=== PATIENT | female | born 1995 ===

== ENCOUNTER 2024-01-17 13:37 | Emergency (ER) | payer OTHER ==
[~2024-01-17] VITALS: Ht 188 cm; Wt 136.0 kg
--- NOTE | 2024-01-17 13:59 | ED.PDOC ---
Back pain HPI HPI Comments HPI: Poor Historian. 28-year-old female brought in by EMS from home presents with a chief complaint of acute on chronic sciatica pain on the right leg with urinary incontinence last night. Patient mentions that she has lumbar herniated discs. most recent MRI was earlier this year. the back pain is accompanied by right lateral thigh/sciatica pain on the lateral aspect of her right leg that radiates all the way down to her foot. Patient mentions that she had one episode of incontinence last night to urine. Denies any incontinence since then. Patient mentions that heat and ice make the pain better. Patient has been to a pain management clinic and is on Hydrocodone and will see Neurology in March. No other symptoms or modifying factors present at this time. Patient follows with pain management and is currently on [place] and ibuprofen. Patient denies PMHx: Sciatica, Herniated Discs, HLD PSHx: None Allergies: None BP: 133/95 Temp: 98.7F RR: 18 SpO2: 98% HR: 97 REVIEW OF SYSTEMS: CONSTITUTIONAL: Denies acute: fever, diaphoresis, chills, generalized weakness. HEAD: Denies acute: headache, photophobia Eyes: Denies acute: Double vision, vision loss, eye pain, eye discharge. EARS: Denies acute: tinnitus, hearing loss, ear discharge, ear pain, THROAT: Denies acute: sore throat, swelling, difficulty swallowing , pain with swallowing, change in voice. NECK: Denies acute: neck pain, neck swelling, stiff neck. HEART: Denies acute : chest pain, palpitations, LUNGS: Denies acute: SOB, wheezing, cough, hemoptysis ABDOMEN: Denies acute: abdominal pain, Nausea, Vomiting, diarrhea, melena , hematemesis, hematochezia SKIN: Denies acute: rash, redness, lesions, itchiness. EXTREMITIES: Denies acute: calf pain, weakness, denies pain in extremity. Neuro: Denies acute: focal neurological deficit, motor or sensory focal neurological deficit, tremors, seizure like activity, confusion, dizziness, change in mental status, : Denies acute: dysuria, hematuria, flank pain, increase in urinary frequency. PSYCH: Denies acute: hallucination, suicidal ideation, homicidal ideation. FEMALE: Denies acute: abnormal vaginal bleeding, foul odor, unusual discharge. PHYSICAL EXAM: General: no acute distress, awake and alert. Head: normocephalic, atraumatic. Neck: supple, trachea is midline, no swelling. Throat: Normal phonation. Eyes:, no erythema, no purulent discharge, no proptosis, no icterus. Heart: regular rate, regular rhythm, no significant murmur appreciated. Lungs: no apparent respiratory distress, Able to speak in full sentences. No wheezing, no rhonchi, no crackles. No stridors Clear to auscultation bilaterally. Abdomen: non tender to palpation, non distended, soft, no guarding, no rebound, + bowel sounds. Neuro: Awake, Alert, oriented to name, self, situation, follows commands GCS=15. Speech is normal. Skin: no petechia, no purpura, no cyanosis, non-pale, not jaundice. Obese. Lower extremities: --no - Pitting edema no deformity, no focal swelling, no calf TTP. Makes eye contact. moves all four extremities. Face: no apparent facial droop. Chief Complaint: Back Pain Time Seen by MD: 13:51 Reviewed Notes: Medications, Allergies Home Meds Active Scripts Prednisone (Prednisone) 20 Mg Tab, 20 MG PO DAILY, #18 TAB 0 Refills Take 2 tablets daily for 5 days, then 1 tablet daily for 5 days, then half tablet for 6 days then stop. Prov:ADRIELROSIE ROBERTS DO 01/17/24 Baclofen (Baclofen) 10 Mg Tab, 10 MG PO TID, #60 TAB 1 Refill Prov:ROSIE GUAN DO 01/17/24 Pantoprazole Sodium Sesquihydr (Protonix) 40 Mg Tab, 40 MG PO DAILY, #30 TAB 0 Refills Prov:DUKEROSIE BARNEY DO 01/17/24 Naproxen (NAPROSYN TABLET) 500 Mg Tb, 1 TAB PO BID, #60 TAB 1 Refill Prov:ADRIELALEJANDRAROSIE Gill DO 01/17/24 Information Source: Patient Mode of Arrival: EMS Past Medical History Past Medical History (Other): Herniated Discs, Sciatica Surgical History: Denies all surgeries CARBIDER History: Denies all CARBIDER Hx Family History Family History: Reviewed,noncontributory to illness Social History Smoker: Non-Smoker Alcohol: Denies ETOH Use Drugs: Denies Drug Use Lives In: Home Was a procedure done? Was a procedure done?: No Back Pain Differential Dx Differential Diagnosis: Other (DDX included but not limited to Cauda Equina s yndrome, lumbar radiculopathy, arthritis, disk herniation, sciatica, muscle strain, epidural abscess, transverse myelitis. Cord compression, spinal foraminal stenosis, spinal fractures, spondylosis, central canal stenosis, trauma, muscle sprain/strain, aneurysm/dissection, kidney stones, shingles, arthritis, [place], neoplasm.) X-Ray, Labs, Meds, VS Vital Signs Date Time Temp Pulse Resp B/P (MAP) Pulse Ox O2 Delivery O2 Flow Rate FiO2 01/17/24 17:48 86 16 121/81 (94) 98 01/17/24 16:15 95 01/17/24 14:13 89 12 95 Room Air* 0 21 01/17/24 14:13 98.4 89 12 120/80 (93) 95 98.4 01/17/24 13:54 98.7 97 18 133/95 (108) 98 Lab Test 01/17/24 16:10 01/17/24 14:47 Range/Units Urine Color Light-yellow Yellow Urine Clarity Clear Clear Urine pH 5.5 5.0-9.0 Urine Specific [place] 1.010 1.001-1.035 Urine Protein Negative Negative Urine Ketones Negative Negative Urine Blood Negative Negative /uL Urine Nitrite Negative Negative Urine Bilirubin Negative Negative Urine Urobilinogen Normal Negative mg/dL Urine Leukocyte Esterase Negative Negative /uL Urine RBC 1 0 - 4 /hpf Urine WBC 1 0 - 5 /hpf Urine Squamous Epithelial Cells Few <5 /hpf Urine Bacteria Few H None Seen /hpf Urine Glucose Normal Normal mg/dL White Blood Count 9.8 4.4-10.8 10^3/uL Red Blood Count 4.45 4.0-5.20 10^6/uL Hemoglobin 14.5 12.2-16.2 g/dL Hematocrit 41.6 36.0-46.0 % Mean Corpuscular Volume 93.5 80.0-100.0 fL Mean Corpuscular Hemoglobin 32.7 H 28.0-32.0 pg Mean Corpuscular Hemoglobin Concent 35.0 32.0-36.0 g/dL Red Cell Distribution Width 13.0 11.8-14.3 % Platelet Count 291 140-450 10^3/uL Mean Platelet Volume 7.2 6.9-10.8 fL Neutrophils (%) (Auto) 60.2 37.0-80.0 % Lymphocytes (%) (Auto) 32.2 10.0-50.0 % Monocytes (%) (Auto) 6.5 0.0-12.0 % Eosinophils (%) (Auto) 0.8 0.0-7.0 % Basophils (%) (Auto) 0.3 0.0-2.0 % Neutrophils # (Auto) 5.9 1.6-8.6 10 ^3/uL Lymphocytes # (Auto) 3.1 0.4-5.4 10 ^3/uL Monocytes # (Auto) 0.6 0-1.3 10 ^3/uL Eosinophils # (Auto) 0.1 0-0.8 10 ^3/uL Basophils # (Auto) 0 0-0.2 10 ^3/uL Nucleated Red Blood Cells 0.1 % Sodium Level 138 136-145 mmol/L Potassium Level 4.4 3.5-5.1 mmol/L Chloride Level 106 98-107 mmol/L Carbon Dioxide Level 27 20-31 mmol/L Anion Gap 5 5-15 Blood Urea Nitrogen 13 9-23 mg/dL Creatinine 0.93 0.550-1.02 mg/dL Glomerular Filtration Rate Calc 85 >90 mL/min BUN/Creatinine Ratio 14.0 10.0-20.0 Serum Glucose 82 74-106 mg/dL Lactic Acid Level 0.6 0.4-2.0 mmol/L Calcium Level 9.8 8.7-10.4 mg/dL Magnesium Level 2.2 1.6-2.6 mg/dL Total Bilirubin 0.4 0.2-1.0 mg/dL Aspartate Amino Transferase (AST) 23 13-40 U/L Alanine Aminotransferase (ALT) 45 H 7-40 U/L Alkaline Phosphatase 53 46-116 U/L Total Protein 7.5 5.7-8.2 g/dL Albumin 4.3 3.2-4.8 g/dL Beta HCG, Quantitative 0.1 L 1.5-4.2 mIU/mL Current Medications Medications (Trade) Dose Ordered Sig/Shannan Route Start Time Stop Time Status Last Admin Dexamethasone Sodium Phosphate (Decadron Injection) 20 mg ONCE ONCE IV 01/17/24 14:00 01/17/24 14:02 DC 01/17/24 14:30 Acetaminophen/ Hydrocodone Bitart ([place] 5/325MG Tab) 1 tab ONCE ONCE PO 01/17/24 14:00 01/17/24 14:02 DC 01/17/24 14:30 Ketorolac Tromethamine (Toradol Injection) 30 mg ONCE ONCE IV 01/17/24 14:00 01/17/24 14:02 DC 01/17/24 14:31 Time of 1ST Reevaluation: 14:21 Reevaluation 1ST: Unchanged Time of 2ND Reevaluation: 15:13 (The case was discussed with the admitting team (HPI, physical exam, labs and diagnostic tests that were available at the time of disposition, ED course, treatment plan) on the phone. They agreed to come and evaluate the patient and disposition the patient appropriately. Dr. Guan. ) Patient Education/Counseling: Diagnosis, Treatment Family Education/Counseling: No Family Present Comments Patient presented with the above HPI.---low back pain/sciatica---workup was initiated. patient was found with the above mentioned diagnosis. Patient will be admitted to rule out cauda equina versus other etiologies and also for pain control. Patient was given: Decadron, Toradol, [place]. Patient ED course and VS have been stabilized. Patient has been reassessed in the ED and remained in a stable condition. Pertinent incidental findings were discussed with the patient and/or family. Patient/family voices understanding and is agreeable with plan. Patient has been observed in the ED adequate length of time to insure improvement/stability. A consult for Neurology was placed. patient was admitted to the medicine team for further evaluation and treatment of their presentation. Please see the medicine team consultation notes and final disposition. We are unable to perform an MRI at this hospital unless the patient is admitted first. All the reports of any imaging studies that were ordered by myself were reviewed by myself. Departure 1 Departure Time of Disposition: 14:15 Impression: Primary Impression: Lumbar radiculopathy Additional Impression: Cauda equina syndrome Disposition: ADMITTED INPATIENT Admit to: Tele Condition: Guarded e-Prescriptions Prednisone (Prednisone) 20 Mg Tab 20 MG PO DAILY, #18 TAB 0 Refills Take 2 tablets daily for 5 days, then 1 tablet daily for 5 days, then half tablet for 6 days then stop. Prov: ROSIE GUAN DO 01/17/24 Baclofen (Baclofen) 10 Mg Tab 10 MG PO TID, #60 TAB 1 Refill Prov: ROSIE GUAN DO 01/17/24 Pantoprazole Sodium Sesquihydr (Protonix) 40 Mg Tab 40 MG PO DAILY, #30 TAB 0 Refills Prov: ROSIE GUAN DO 01/17/24 Naproxen (NAPROSYN TABLET) 500 Mg Tb 1 TAB PO BID, #60 TAB 1 Refill Prov: ROSIE GUAN DO 01/17/24 Discharged With: Self Critical Care Note Critical Care Time?: No I personally scribed for MONIQUE FARLEY DO ([email or web address]) on 01/17/24 at 13:59. Electronically submitted by Rosalio Ayala ([email or web address]). I personally scribed for MONIQUE FARLEY DO ([email or web address]) on 01/17/24 at 14:02. Electronically submitted by Rosalio Ayala ([email or web address]). MONIQUE FARLEY DO Jan 17, 2024 13:59
[2024-01-17 14:13] VITALS: PULSE 89; RESP 12; TEMP 98.4; O2SAT 95
[2024-01-17] MEDS: HYDROcodone-ACET 5/325MG TAB PO ONE (14:30)
[2024-01-17] MEDS: DexAMETHasone SOD PHOS 10MG/1ML VIAL INJ IV ONE (14:30)
[2024-01-17] MEDS: KETOROLAC TROMETH 30 MG/ML 1ML VIAL IV ONE (14:31)
[2024-01-17 15:17] LABS: Basophils # (auto) 0 10 ^3/uL (0-0.2); Basophils % (auto) 0.3 % (0.0-2.0); Eosinophils # (auto) 0.1 10 ^3/uL (0-0.8); Eosinophils % (auto) 0.8 % (0.0-7.0); Hematocrit 41.6 % (36.0-46.0); Hemoglobin 14.5 g/dL (12.2-16.2); Lymphocytes # (auto) 3.1 10 ^3/uL (0.4-5.4); Lymphocytes % (auto) 32.2 % (10.0-50.0); Mean Corpuscular Hemoglobin 32.7 pg (28.0-32.0); Mean Corpuscular Volume 93.5 fL (80.0-100.0); Monocytes # (auto) 0.6 10 ^3/uL (0-1.3); Monocytes % (auto) 6.5 % (0.0-12.0); Neutrophils # (auto) 5.9 10 ^3/uL (1.6-8.6); Neutrophils % (auto) 60.2 % (37.0-80.0); Nucleated Red Blood Cells % 0.1 %; Platelet Count (auto) 291 10^3/uL (140-450); Red Blood Cells 4.45 10^6/uL (4.0-5.20); White Blood Cell 9.8 10^3/uL (4.4-10.8)
[2024-01-17 15:28] LABS: Alanine Aminotransferase 45 U/L (7-40); Albumin 4.3 g/dL (3.2-4.8); Alkaline Phosphatase 53 U/L (46-116); Anion Gap 5 (5-15); Aspartate Aminotransferase 23 U/L (13-40); Blood Urea Nitrogen 13 mg/dL (9-23); Calcium 9.8 mg/dL (8.7-10.4); Carbon Dioxide 27 mmol/L (20-31); Chloride 106 mmol/L (98-107); Glucose 82 mg/dL (74-106); Magnesium 2.2 mg/dL (1.6-2.6); Potassium 4.4 mmol/L (3.5-5.1); Sodium 138 mmol/L (136-145)
[2024-01-17 15:29] LABS: Bilirubin, Total 0.4 mg/dL (0.2-1.0); Total Protein 7.5 g/dL (5.7-8.2)
[2024-01-17 16:26] LABS: Urine Bacteria FEW /hpf (None Seen); Urine Blood Negative /uL (Negative); Urine Clarity Clear (Clear); Urine Color Light-Yellow (Yellow); Urine Protein, UAD Negative (Negative); Urine Urobilinogen Normal (Negative); Urine WBC 1 /hpf (0 - 5); Urine pH 5.5 (5.0-9.0)
--- NOTE | 2024-01-17 16:41 | DVH ---
EXAM: CT LS SPINE WO CONTRAST INDICATION: low back pain EXAM DATE: 01/17/2024 04:00 PM COMPARISON: None TECHNIQUE: Multiple axial CT images of the lumbar spine were obtained using bone algorithm. Axial and coronal reformatting was done. Bone and soft tissue windows were reviewed. Radiation Dose Information: CT Dose: CTDI volume is 35.4 mGy. Dose-length product is 1336.84 mGy*cm Findings: There are 5 nonrib-bearing lumbar vertebrae. There is no evidence of an acute fracture or spondylolisthesis. The vertebral body heights are well-m aintained. Sacralization of the right transverse process of L5 with partial fusion to the sacrum. No evidence of degenerative disc disease. No neuroforaminal narrowing. No spinal canal stenosis. The alignment is within normal limits. The paraspinal soft tissues appear within normal limits. The v isualized portions of the abdomen are unremarkable. T12-L1: Normal L1-L2: Normal L2-L3: Normal L3-L4: Normal L4-L5: Normal L5-S1: Normal Impression: 1. No evidence of an acute fracture. 2. 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
--- NOTE | 2024-01-17 17:24 | DVHDS2 ---
Discharge Summary Date of Admission Date of Discharge: Jan 17, 2024 Labs/Diagnostic Data: Laboratory Results Test 01/17/24 16:10 01/17/24 14:47 Urine Color Light-yellow (Yellow) Urine Clarity Clear (Clear) Urine pH 5.5 (5.0-9.0) Urine Specific [place] 1.010 (1.001-1.035) Urine Protein Negative (Negative) Urine Ketones Negative (Negative) Urine Blood Negative /uL (Negative) Urine Nitrite Negative (Negative) Urine Bilirubin Negative (Negative) Urine Urobilinogen Normal mg/dL (Negative) Urine Leukocyte Esterase Negative /uL (Negative) Urine RBC 1 /hpf (0 - 4) Urine WBC 1 /hpf (0 - 5) Urine Squamous Epithelial Cells Few /hpf (<5) Urine Bacteria Few /hpf (None Seen) Urine Glucose Normal mg/dL (Normal) White Blood Count 9.8 10^3/uL (4.4-10.8) Red Blood Count 4.45 10^6/uL (4.0-5.20) Hemoglobin 14.5 g/dL (12.2-16.2) Hematocrit 41.6 % (36.0-46.0) Mean Corpuscular Volume 93.5 fL (80.0-100.0) Mean Corpuscular Hemoglobin 32.7 pg (28.0-32.0) Mean Corpuscular Hemoglobin Concent 35.0 g/dL (32.0-36.0) Red Cell Distribution Width 13.0 % (11.8-14.3) Platelet Count 291 10^3/uL (140-450) Mean Platelet Volume 7.2 fL (6.9-10.8) Neutrophils (%) (Auto) 60.2 % (37.0-80.0) Lymphocytes (%) (Auto) 32.2 % (10.0-50.0) Monocytes (%) (Auto) 6.5 % (0.0-12.0) Eosinophils (%) (Auto) 0.8 % (0.0-7.0) Basophils (%) (Auto) 0.3 % (0.0-2.0) Neutrophils # (Auto) 5.9 10 ^3/uL (1.6-8.6) Lymphocytes # (Auto) 3.1 10 ^3/uL (0.4-5.4) Monocytes # (Auto) 0.6 10 ^3/uL (0-1.3) Eosinophils # (Auto) 0.1 10 ^3/uL (0-0.8) Basophils # (Auto) 0 10 ^3/uL (0-0.2) Nucleated Red Blood Cells 0.1 % Sodium Level 138 mmol/L (136-145) Potassium Level 4.4 mmol/L (3.5-5.1) Chloride Level 106 mmol/L (98-107) Carbon Dioxide Level 27 mmol/L (20-31) Anion Gap 5 (5-15) Blood Urea Nitrogen 13 mg/dL (9-23) Creatinine 0.93 mg/dL (0.550-1.02) Glomerular Filtration Rate Calc 85 mL/min (>90) BUN/Creatinine Ratio 14.0 (10.0-20.0) Serum Glucose 82 mg/dL (74-106) Lactic Acid Level 0.6 mmol/L (0.4-2.0) Calcium Level 9.8 mg/dL (8.7-10.4) Magnesium Level 2.2 mg/dL (1.6-2.6) Total Bilirubin 0.4 mg/dL (0.2-1.0) Aspartate Amino Transferase (AST) 23 U/L (13-40) Alanine Aminotransferase (ALT) 45 U/L (7-40) Alkaline Phosphatase 53 U/L (46-116) Total Protein 7.5 g/dL (5.7-8.2) Albumin 4.3 g/dL (3.2-4.8) Beta HCG, Quantitative 0.1 mIU/mL (1.5-4.2) Other Laboratory Tests 01/17/24 14:47 Brief Hx & Hospital Course: Patient is a 28-year-old female with past medical history of sciatica since the fourth grade who presents with complaints of a sciatica flare. Patient notes that she has right sciatica for which she sees pain management for. Patient notes that approximately 1 her pain started to increase in intensity. She denies any trauma. She presented today because she had 1 episode of urinary incontinence yesterday. Since then she has not had recurrence of any urinary incontinence. Patient denies any fecal incontinence. She denies any perianal or perirectal paresthesia. She complains of anterior shooting right leg pain with intermittent numbness. Upon examination, patient denies any current numbness. No signs to suggest cauda equina syndrome. In the ER, she received Toradol IV, dexamethasone, and hydrocodone 5/325 mg. Patient was monitored for several hours and noted to have her pain improved. Patient underwent CT of the lumbar spine which showed no evidence of acute fracture. Notable for sacralization of the right transverse process of L5 with partial fusion to the sacrum. 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 Patient notes that she has an appointment scheduled with a neurologist in March but is hoping to get be evaluated sooner. She is requesting an orthospine specialist referral. Patient had an MRI of the lumbar spine without contrast done in August 2023 which was reviewed. It showed some mild disc bulging without any stenosis. Patient was able to ambulate to the restroom independently. She denies any gait instability. I discussed the plan of repeating an MRI lumbar spine scan outpatient, stat. I also informed the patient that I will discharge her on naproxen 500 mg twice daily, baclofen, and prednisone tapering dose for her sciatica flare. Patient is to continue taking her [place] as prescribed by pain management. Patient is to follow-up with her pain management doctor. Patient discharged in stable condition. Patient was given a work note. [facility] case management to arrange follow-up appointments. 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 Patient was counseled about treatment plan, medications, possible side effects, patientverbalized understanding. All questions were answered to the best of my ability. This discharge took greater then 30 minutes in planning, reviewing documentation, counseling the patient, and discussing with other team members." ASSESSMENT ASSESSMENT Assessment ROSIE GUAN DO Jan 17, 2024 17:24
[2024-01-17] MEDS ORDERED: NAP500T PO (17:30)
[2024-01-17] MEDS ORDERED: PANT40TA2 PO (17:31)
[2024-01-17] MEDS ORDERED: BACL10TA PO (17:32)
[2024-01-17] MEDS ORDERED: PRED20TA2 PO (17:34)
[2024-01-17 17:48] VITALS: BP 121/81; PULSE 86; RESP 16; O2SAT 98
== END 2024-01-17 18:05 | disposition home or self-care (01) ==
LOC: ER 13:37 → EDBD 13:37 → EDSEX 13:37 → ER 18:05
DX: M51.16 Intervertebral disc disorders with radiculopathy, lumbar region (principal); R10.2 Pelvic and perineal pain; G83.4 Cauda equina syndrome; Z79.899 Other long term (current) drug therapy
CPT/HCPCS: 36415; 72131; 80053; 81001; 83605; 83735; 84702; 85025; 96374; 96375; 99285; J1100; J1885